=== PATIENT | male | born 1960 | race Caucasian/White ===

== ENCOUNTER → 2022-03-23 | Outpatient (CLI) | payer MEDICARE, MEDICAID, SELFPAY ==
--- NOTE | 2022-03-23 10:42 | MRI_ITS ---
PROCEDURE: MRI LUMBAR SPINE WITHOUT CONTRAST REASON FOR EXAM: Male, 61 years old. LBP; lumbar radiculopathy; lumbar spinal stenosis dx Ms 1989,low back pain, leg spasms, wheelchair bound TECHNIQUE: Standardized fat and water weighted pulse sequences were obtained in the sagittal and axial planes. COMPARISON: None FINDINGS: Normal lumbar lordosis. There is a dextroscoliosis of the lumbar spine. Normal conus medullaris that terminates at the T12-L1 level. No visualized fractures or marrow edema or compression deformities. Prominent extrarenal pelvis of the right kidney noted. T12-L1: Normal endplates. Normal disc height, hydration and morphology. Normal bilateral facet joints. Normal central canal and bilateral lateral recesses. Normal bilateral intervertebral neural foramina. L1-2: Normal endplates. Normal disc height, hydration and morphology. Normal bilateral facet joints. Normal central canal and bilateral lateral recesses. Normal bilateral intervertebral neural foramina. L2-3: Normal endplates. Diffuse disc desiccation with mild posterior disc space narrowing and annular bulging Normal bilateral facet joints. Normal central canal and bilateral lateral recesses. Normal bilateral intervertebral neural foramina. L3-4: Normal endplates. Diffuse disc desiccation with mild disc space narrowing and minimal annular bulging. Mild facet joint hypertrophy. Normal central canal and bilateral lateral recesses. Normal bilateral intervertebral neural foramina. L4-5: Normal endplates. Diffuse disc desiccation with mild posterior disc space narrowing without bulging or herniation of the disc. Severe central canal stenosis due to severe facet joint and ligament of flavum hypertrophy. Mild bilateral foraminal stenosis. L5-S1: Normal endplates. Diffuse disc desiccation with mild posterior disc space narrowing and minimal annular bulging. Mild central canal stenosis primarily due to mild to moderate facet joint hypertrophy. Moderate right foraminal stenosis with nerve root compression. Mild to moderate left foraminal stenosis with nerve root compression as well. Normal bilateral facet joints. Normal visualized sacral ala. Normal visualized paraspinous soft tissue structures. MRI/Spine Lumbar (Routine) IMPRESSION: 1. Multilevel degenerative changes, as described above. 2. Severe central canal stenosis at the L4-L5 level Electronically Signed: Rich Gastelum MD at 11:58 EST ,
--- NOTE | 2022-03-23 10:42 | MRI_ITS ---
STUDY: MRI BRAIN WITH AND WITHOUT CONTRAST REASON FOR EXAM: Male, 61 years old. multiple sclerosis monitoring TECHNIQUE: Standardized multiplanar fat and water weighted pulse sequences were obtained. clariscan 13ml IV was administered for the contrast portion of the examination. COMPARISON: None. FINDINGS: There is mild cerebral atrophy with widening of the extra-axial spaces and ventricular dilatation. There are multiple white matter hyperintensities, distributed throughout the deep white matter tracts of the cerebral hemispheres, consistent with moderate chronic white matter ischemic changes. There is no evidence for recent intracranial ischemia or other cause of cytotoxic edema on diffusion weighted imaging (DWI). Normal T2* images of the brain without demonstrated susceptibility artifact. There is no demonstrated hemosiderin stain. There are no focal brain parenchymal lesions or enhancing lesions of the brain parenchyma on the postcontrast study. There is no abnormal thickening or enhancement of the meninges or dura or skull. Normal bilateral basal ganglia. Normal thalami. There is no extra-axial fluid accumulation. Normal flow voids within the major intracranial circulation suggesting patency by spin echo criteria. Normal venous enhancement. There is no enhancing intra-axial or extra-axial abnormality. Normal sella turcica, pituitary gland, infundibular stalk, optic chiasm and hypothalamus. Normal tectal plate and pineal gland. Normal midbrain, logan and medulla. Normal cerebellum. Normal basal cisterns. Normal bilateral temporal bones. Normal bilateral internal auditory canals. No demonstrated orbital abnormality, within the constraints of a routine brain study. Normal visualized paranasal sinuses. Normal calvarium and skull base. Normal visualized soft tissue structures. Normal visualized upper cervical spine. MRI/Brain W/WO Contrast IMPRESSION: 1. Involutional and chronic ischemic changes of the brain, as described above. 2. There are no focal brain parenchymal lesions or enhancing lesions of the brain parenchyma on the postcontrast study. There is no abnormal thickening or enhancement of the meninges or dura or skull. Electronically Signed: Rich Gastelum MD at 10:54 EST ,
[2022-03-23 11:15] LABS: CREATININE FINGERSTICK < 0.9 mg/dL (0.70-1.30); EGFR FINGERSTICK > 60.0000 mL/min (>60)
== END | disposition home or self-care (01) ==
LOC: MRI 10:42
PROVIDERS: Referring Provider Psychiatry & Neurology Neurology; Visit Provider Psychiatry & Neurology Neurology
DX: M48.061 Spinal stenosis, lumbar region without neurogenic claudication (principal); G35 Multiple sclerosis; M54.50 Low back pain, unspecified; M54.16 Radiculopathy, lumbar region
CPT/HCPCS: 70553; 72148; A9575